=== PATIENT | male | born 2000 | race Caucasian/White ===

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

== ENCOUNTER 2020-05-12 19:17 | Emergency (ER) | payer OTHER ==
[~2020-05-12] VITALS: Ht 185.4 cm; Wt 113.4 kg
[~2020-05-12 19:17] MED LIST changes: +ALBU90OI INH; +CODEINE-GUAIFE120 ML PO; +ONDA4ODT MM; +Prednisone20 MG PO
== END 2020-05-12 20:23 | disposition home or self-care (01) ==
LOC: ER 19:17
DX: T55.1X1A Toxic effect of detergents, accidental (unintentional), initial encounter (principal); T23.552A Corrosion of first degree of left palm, initial encounter; T23.542A Corrosion of first degree of multiple left fingers (nail), including thumb, initial encounter; Z87.891 Personal history of nicotine dependence; Y92.89 Other specified places as the place of occurrence of the external cause; Y99.0 Civilian activity done for income or pay
CPT/HCPCS: 16000; 99282-25

== ENCOUNTER 2020-08-10 17:33 | Emergency (ER) | payer OTHER ==
[~2020-08-10] VITALS: Ht 185.4 cm; Wt 113.4 kg
== END 2020-08-10 20:32 | disposition home or self-care (01) ==
LOC: ER 17:33
DX: S16.1XXA Strain of muscle, fascia and tendon at neck level, initial encounter (principal); S46.002A Unspecified injury of muscle(s) and tendon(s) of the rotator cuff of left shoulder, initial encounter; Z87.891 Personal history of nicotine dependence; V43.53XA Car driver injured in collision with pick-up truck in traffic accident, initial encounter; Y92.410 Unspecified street and highway as the place of occurrence of the external cause
CPT/HCPCS: 73030; 96372; 99284-25; A9270; A9270-GY; J1885

== ENCOUNTER → 2022-11-22 | Outpatient (CLI) | payer OTHER | LOC: LAB SHORT 13:39 → PLD 13:39 | DX: R23.8 Other skin changes (principal); L53.9 Erythematous condition, unspecified; L08.9 Local infection of the skin and subcutaneous tissue, unspecified | CPT/HCPCS: 88312 ==

== ENCOUNTER → 2023-01-13 | Outpatient (CLI) | payer OTHER | END | disposition home or self-care (01) | LOC: LAB SHORT 17:33 → LAB 17:33 | DX: R30.0 Dysuria (principal) | CPT/HCPCS: 87086 ==

== ENCOUNTER 2023-08-08 13:53 | Emergency (ER) | payer OTHER ==
[~2023-08-08] VITALS: Ht 188 cm; Wt 129.3 kg
[2023-08-08 14:04] VITALS: BP 174/107
[2023-08-08] MEDS ORDERED: Robaxin750 MG PO (17:47)
[2023-08-08] MEDS ORDERED: LIDOCAINE1 EACH TOP (17:47)
== END 2023-08-08 18:21 | disposition home or self-care (01) ==
LOC: ER 13:53
DX: M54.50 Low back pain, unspecified (principal); M54.6 Pain in thoracic spine; Z87.891 Personal history of nicotine dependence; X50.0XXA Overexertion from strenuous movement or load, initial encounter; Y99.0 Civilian activity done for income or pay
CPT/HCPCS: 96372; 99283-25; A9270; J1885

== ENCOUNTER 2025-05-05 16:42 | Emergency (ER) | payer MEDICARE, OTHER ==
[~2025-05-05] VITALS: Ht 185.4 cm; Wt 108.9 kg
[~2025-05-05 16:42] MED LIST changes: +LIDOCAINE1 EACH TOP; +Robaxin750 MG PO
[2025-05-05 17:29] LABS: BASOPHILS ABSOLUTE AUTO 0.05 K/mm3 (0.00-0.23); BASOPHILS PERCENT AUTO 0 % (0-2); EOSINOPHILS ABSOLUTE AUTO 0.12 K/mm3 (0.00-0.68); EOSINOPHILS PERCENT AUTO 1 % (0-6); Hematocrit 44.2 % (37.0-53.0); Hemoglobin 15.6 g/dL (13.5-17.5); IMMATURE GRAN ABSOLUTE AUTO 0.13 K/mm3 (0.00-0.10); IMMATURE GRAN PERCENT AUTO 1 % (0-1); LYMPHOCYTES ABSOLUTE AUTO 2.44 K/mm3 (0.84-5.20); LYMPHOCYTES PERCENT AUTO 21 % (21-46); MONOCYTES ABSOLUTE AUTO 0.83 K/mm3 (0.16-1.47); MONOCYTES PERCENT AUTO 7 % (4-13); Mean Corpuscular HGB Conc 35.3 g/dL (31.5-36.5); Mean Corpuscular Volume 87 fL (80-100); NEUTROPHILS ABSOLUTE AUTO 8.22 K/mm3 (1.96-9.15); NEUTROPHILS PERCENT AUTO 70 % (41-73); NRBC ABSOLUTE 0.00 K/mm3 (0.00-0.02); NRBC Auto 0.0 /100 WBC (0.0-0.2); Platelet Count 383 K/mm3 (150-400); RDW Coefficient Variation 11.9 % (11.7-14.2); RDW Standard Deviation 38.5 fL (35.1-46.3)
[2025-05-05 18:03] VITALS: BP 130/66
[2025-05-05 18:08] LABS: Alanine Aminotransfer (ALT/SGP 40.0 U/L (12-78); Albumin, Blood 4.2 g/dL (3.4-5.0); Albumin/Globulin Ratio 1.0 (0.8-1.8); Anion Gap 7.0 mmol/L (3-11); Aspartate Aminotrans (AST/SGOT 23.0 U/L (12-37); Bilirubin, Total 0.4 mg/dL (0.1-1.0); Blood Urea Nitrogen 13.0 mg/dL (8-24); CO2, Blood 24.0 mmol/L (21-32); Calcium, Blood 9.5 mg/dL (8.5-10.1); Chloride, Blood 109.0 mmol/L (98-108); Creatinine, Blood 0.79 mg/dL (0.60-1.20); Globulin, Blood 4.1 g/dL (2.2-4.0); Glucose, Blood 102.0 mg/dL (70-99); Potassium, Blood 3.4 mmol/L (3.5-5.5); Sodium, Blood 137.0 mmol/L (136-145); Total Protein, Blood 8.3 g/dL (6.4-8.2)
[2025-05-05] MEDS ORDERED: Ketorolac Tromethamine 15mg Vial IV ONE (20:15)
[2025-05-05] MEDS ORDERED: Ondansetron HCl 2 MG / ML 2ML Vial IV ONE (20:15)
[2025-05-05] MEDS ORDERED: NS 1,000 ML IV SCH (20:15)
[2025-05-05 20:38] LABS: Source, Urine Clean Catch
[2025-05-05 20:43] LABS: Bilirubin, Urine Neg (Neg); Glucose Qualitative, Urine Neg (Neg); Ketones, Urine Neg (Neg); Leukocyte Esterase, Urine 1+ (Neg); Protein, Urine 2+ (Neg); Specific Gravity, Urine 1.015 (1.003-1.022); Urobilinogen, Urine NORM (Normal)
[2025-05-05 20:50] LABS: Color, Urine Yellow (P-Yellow)
[2025-05-05 20:51] LABS: Red Blood Cells, Urine 0-2 /hpf (0-2)
[2025-05-05] MEDS ORDERED: RX Prepack 2 Tabs Ondansetron ODT 4MG UD ONE (21:40)
[2025-05-05] MEDS ORDERED: ONDA4ODT MM (21:41)
== END 2025-05-05 22:20 | disposition home or self-care (01) ==
LOC: ER 16:42
PROVIDERS: Student in an Organized Health Care Education/Training Program
DX: A08.4 Viral intestinal infection, unspecified (principal); Z87.891 Personal history of nicotine dependence
CPT/HCPCS: 74177; 80053; 81001; 83690; 85025; 87086; 96372; 96374; 96375; 99284-25; A9270; J1885; J2405; J7030; Q9967